=== PATIENT | female | born 1945 | race Caucasian/White ===

== ENCOUNTER → 2016-11-02 | Outpatient (CLI) | payer OTHER, MEDICARE | LOC: RAD 09:07 | DX: R10.2 Pelvic and perineal pain (principal) ==

== ENCOUNTER → 2020-03-11 | Outpatient (CLI) | payer OTHER, MEDICARE | LOC: LAB 14:13 | PROVIDERS: ATTEND Family Medicine | DX: Z20.828 Contact with and (suspected) exposure to other viral communicable diseases (principal) ==